=== PATIENT | male | born 1935 | race Caucasian/White ===

== ENCOUNTER 2016-05-03 05:40 | Outpatient (CLI) | payer MEDICARE, OTHER ==
[~2016-05-03] VITALS: Ht 185.4 cm; Wt 91.8 kg
--- NOTE | ~2016-05-03 | HEMODYNAMI ---
PATIENT:NAVYA PRICE MEDICAL RECORD: [id number] : 31 LOCATION:[facility] ADMISSION DATE: 05/03/16 Generatedon:05/03/20169:51 Patient name: NAVYA PRICE Patient #: [id number] SSN: : 1935 Date of study: 05/03/2016 Page: Of Hemodynamic Procedure Report Patient Data Patient Demographics Procedure consent was obtained First Name: NAVYA Gender: Male Last Name: DEE : 1935 Middle Initial: M Age: 80 year(s) Patient #: [id number] Race: Unknown Additional ID: [id number] Contact details [address]: [address] [place] [address] DRIVE State: [place] City: [place] Zip code: [address] Past Medical History Allergies: No known allergies Admission Admission Data Admission Date: 05/03/2016 Admission Time: 5:40 Height (in.): 71 BSA: 2.12 (m2) Height (cm.): 180.34 BMI: 28.17 (kg/m2) Weight (lbs.): 202 Weight (kg.): 91.63 Procedure Procedure Types Cath Procedure Peripheral Cath Diagnostic Procedure Cath Peripheral Abd/Extremity Extremities Bilat Lower Extremity Procedure Description Procedure Date Procedure Date: 05/03/2016 Procedure Start Time: 8:42 Procedure Staff Name Function Ashish Hays MD Performing Physician Bernardino Bird RT Scrub Elise Dinh RN Nurse Briana Woodard RN Nurse Patrica Robins RT Remanufacturing Technician Patrica Robins RT Monitor Procedure Data Cath Procedure Fluoroscopy Diagnostic fluoroscopy Total fluoroscopy Time: 9.5 time: 9.5 min min Diagnostic fluoroscopy Total fluoroscopy dose: dose: 418.58 mGy 418.58 mGy Contrast Material Contrast Material Type Amount (ml) Visipaque 270 80 Entry Location Entry Primary Successful Side Size Upsize Upsize Entry Closure Succ essful Closure Location (Fr) 1 (Fr) 2 (Fr) Remarks Device Remarks Femoral Left 5 Fr artery Femoral Left Angio-VIP artery 6Fr Diagnostic catheters Device Type Used For End Catheter Placement Merit ULTRA BOLUS FLUSH 5Fr 65CM catheter Procedure Medications Medication Administration Route Dosage Oxygen NC 3 l/min Heparin Flush Bag added to field 3 bags (1000units/500ml NS) Lidocaine 1% added to field 20 Versed I.V. 1 mg Fentanyl I.V. 50 mcg Versed I.V. 1 mg Fentanyl I.V. 50 mcg Heparin Bolus I.V. 5000 units Nitroglycerin IC/IA I.A. 200 mcg Fentanyl I.V. 50 mcg Versed I.V. 1 mg Nitroglycerin IC/IA I.A. 200 mcg Fentanyl I.V. 25 mcg Versed I.V. 0.5 mg Fentanyl I.V. 25 mcg Hemodynamics Rest BSA: 2.12 (m2) O2 Consumption: Estimated: 240.28 (ml/min) O2 Consumption indexed : Estimated:113.34 (ml/min/m) Heart Rate: 68 (bpm) Snapshots Pre Cath Intra NCS Post Cath Vital Signs Time Heart Resp SPO2 NIBP (mmHg) Rhythm Pain Sedation Rate (ipm) (%) Status Level (bpm) 8:22:14 81 15 99 169/98(144) A-Fib 0 (11) 10(A) , No pain 8:26:34 63 21 99 144/85(111) A-Fib 0 (11) 10(A) , No pain 8:30:50 67 16 98 134/78(116) A-Fib 0 (11) 10(A) , No pain 8:35:02 57 36 96 134/75(109) A-Fib 0 (11) 10(A) , No pain 8:39:14 68 23 96 127/75(119) A-Fib 0 (11) 10(A) , No pain 8:43:26 64 14 95 129/66(103) A-Fib 0 (11) 10(A) , No pain 8:47:34 60 16 96 126/79(106) A-Fib 0 (11) 9(A) , No pain 8:51:42 68 14 96 130/77(100) A-Fib 0 (11) 9(A) , No pain 8:55:51 62 17 96 136/77(110) A-Fib 0 (11) 9(A) , No pain 9:00:05 65 13 95 135/74(104) A-Fib 0 (11) 9(A) , No pain 9:04:21 75 23 95 131/63(94) A-Fib 0 (11) 9(A) , No pain 9:08:34 73 13 94 120/70(93) A-Fib 0 (11) 9(A) , No pain 9:12:43 69 33 94 128/66(90) A-Fib 0 (11) 10(A) , No pain 9:16:53 62 31 94 128/70(86) A-Fib 0 (11) 9(A) , No pain 9:21:07 66 20 94 102/63(91) A-Fib 0 (11) 9(A) , No pain 9:25:09 63 16 94 113/71(86) A-Fib 0 (11) 9(A) , No pain 9:29:17 68 12 95 120/64(81) A-Fib 0 (11) 9(A) , No pain 9:33:25 77 15 95 127/73(94) A-Fib 0 (11) 9(A) , No pain 9:37:36 55 47 95 121/71(94) A-Fib 0 (11) 9(A) , No pain 9:41:44 57 13 97 126/71(84) A-Fib 0 (11) 10(A) , No pain 9:45:50 58 13 95 126/81(113) A-Fib 0 (11) 9(A) , No pain 9:50:49 61 19 97 Measuring A-Fib 0 (11) 9(A) , No pain 9:50:57 67 19 96 126/78(109) A-Fib 0 (11) 9(A) , No pain Medications Time Medication Route Dose Verified Delivered Reason Notes Effectiveness by by 8:33:52 Oxygen NC 3 Briana Briana Per protocol l/min King NERI Woodard RN 8:34:07 Heparin Flush added 3 bags Briana Briana used for Bag to King NERI Woodard RN procedure (1000units/500ml field NS) 8:34:19 Lidocaine 1% added 20ml Briana Briana for local to vial King NERI Woodard RN anesthetic field 8:35:43 Versed I.V. 1 mg Briana Briana for sedation King NERI Woodard RN 8:35:50 Fentanyl I.V. 50 mcg Briana Briana for sedation King NERI Woodard RN 8:43:52 Versed I.V. 1 mg Briana Briana for sedation King NEIR Woodard RN 8:43:58 Fentanyl I.V. 50 mcg Briana Briana for sedation King NERI Woodard RN 9:03:12 Heparin Bolus I.V. 5000 Briana Briana for units King NERI Woodard RN anticoagulation 9:03:34 Nitroglycerin I.A. 200mcg Ashish Ashish for IC/IA Saúl latham MD 9:03:46 Fentanyl I.V. 50 mcg Briana Briana for sedation King NERI Woodard RN 9:14:54 Versed I.V. 1 mg Briana Briana for sedation King NERI Woodard RN 9:20:13 Nitroglycerin I.A. 200mcg Ashish Ashish for IC/IA Saúl latham MD 9:34:12 Fentanyl I.V. 25 mcg Briana Briana for sedation King NERI Woodard RN 9:43:15 Versed I.V. 0.5 mg Briana Briana for sedation King NERI Woodard RN 9:43:20 Fentanyl I.V. 25 mcg Briana Briana for sedation King NERI Woodard RN Procedure Log Time Note 7:53:18 Patient Weight : 202 lbs 7:53:25 Patient Height : 71 inches 7:54:07 Use device set IR Diagnostic 7:54:09 Sterile Angiographic Pack opened to sterile field. 7:54:11 Bag Decanter opened to sterile field. 7:54:12 Acist Manifold opened to sterile field. 7:54:13 A Merit ULTRA BOLUS FLUSH 5Fr 65CM catheter was advanced over the wire and used for . 7:54:13 Acist Hand Control opened to sterile field. 7:54:14 Acist Syringe opened to sterile field. 7:54:54 TUBING, CONTRAST INJCTN HI PRES opened to sterile field. 7:54:55 Micropuncture VSI 4FR kit opened to sterile field. 7:54:56 Lui DOC .035 guide wire opened to sterile field. 7:54:57 St Vlad 5FR Sheath opened to sterile field. 7:54:58 Lui PARIKH 260 guide wire opened to sterile field. 8:04:28 8:04:48 Time tracking: Regular hours 8:05:09 Correct patient and procedure confirmed by team. 8:05:11 Signed procedure consent form obtained from patient. 8:05:20 H&P Date Dictated: 05/03/2016 Within 30 days and on chart.. 8:05:23 Pre-procedure instructions explained to patient. 8:05:23 Pre-op teaching completed and patient verbalized understanding. 8:05:30 Family in waiting room. 8:05:33 Patient NPO since Midnight. 8:05:54 Patient allergic to No known allergies 8:05:58 Is the patient allergic to Iodine/contrast media? No. 8:06:08 Is patient on blood thinner?Yes 8:06:10 Patient diabetic? No. 8:06:16 8:06:17 ----Pre-sedation anethsthesia assessment.---- 8:06:21 Previous problem with sedation/anesthesia? No ? 8:06:27 Snore? Yes 8:06:29 Sleep apnea? No 8:06:31 Deviated septum? Yes 8:06:34 Opens mouth fully? Yes 8:06:36 Sticks out tongue? Yes 8:06:39 Airway obstruction? No ? 8:06:47 Dentures? No ? 8:06:53 8:07:12 IV patent on arrival in left hand with 0.9% NaCl at [facility]. 8:09:55 Physician arrived. Talking with pt and examining patient. 8:17:36 Pre procedure: right dorsailis pedis pulse Doppler 8:17:41 Pre procedure: right posterior tibial pulse Doppler 8:17:45 Pre procedure: left dorsailis pedis pulse Doppler 8:17:50 Pre procedure: left posterior tibial pulse Doppler 8:18:02 8:18:10 Left groin area was prepped with chlora-prep and draped in sterile fashion 8:18:12 Alarms reviewed by Kimberli Aguilar 8:18:12 Sharps counted by scrub and verified by Rosio 8:18:13 8:21:13 Vital chart was started 8:23:16 ECG and BP/O2 sat monitors applied to patient. 8:23:18 Baseline sample Acquired. 8:23:19 Full Disclosure recording started 8:23:20 8:33:52 Oxygen 3 l/min NC was given by Briana Woodard RN; Per protocol; 8:34:07 Heparin Flush Bag (1000units/500ml NS) 3 bags added to field was given by Briana Woodard RN; used for procedure; 8:34:19 Lidocaine 1% 20ml vial added to field was given by Briana Woodard RN; for local anesthetic; 8:35:14 Physician arrived 8:35:16 --------ALL STOP TIME OUT------ 8:35:17 Final Timeout: patient, procedure, and site verified with staff and physician. All members of the team are in agreement. 8:35:19 Left groin site verified by team. 8:35:24 Physical assessment completed. ASA score P 3 - A patient with severe systemic disease as per Ashish Hays MD. 8:35:32 Sedation plan: IV Moderate Sedation Versed, Fentanyl, Lidocaine 8:35:43 Versed 1 mg I.V. was given by Briana Woodard RN; for sedation; 8:35:50 Fentanyl 50 mcg I.V. was given by Briana Woodard RN; for sedation; 8:42:46 Procedure started. 8:42:55 Local anesthetic to left femerol artery with Lidocaine 1% by Ashish Hays MD.INITIAL ACCESS ONLY 8:43:52 Versed 1 mg I.V. was given by Briana Woodard RN; for sedation; 8:43:58 Fentanyl 50 mcg I.V. was given by Briana Woodard RN; for sedation; 8:47:40 Arterial access obtained using ultrasound guidance. 8:47:53 A 5 Fr sheath was inserted into the Left Femoral artery 8:51:24 Terumo ANGLE 260L glide wire opened to sterile field. 8:51:37 Terumo TORQUE DEVICE PLASTIC .038 opened to sterile field. 8:54:32 Terumo 6Fr [place] Destination Sheath opened to sterile field. 8:57:17 Terumo 5FR ANGLED 100CM glide catheter opened to sterile field. 9:02:23 VIPER .014 335 CM guide wire opened to sterile field. 9:03:12 Heparin Bolus 5000 units I.V. was given by Briana Woodard RN; for anticoagulation; 9:03:34 Nitroglycerin IC/IA 200mcg I.A. was given by Ashish Hays MD; for vasodilation; 9:03:46 Fentanyl 50 mcg I.V. was given by Briana Woodard RN; for sedation; 9:04:19 TURB[place] SX-C catheter opened to sterile field. 9:04:31 CXI SUPPORT .035 135 CM STR catheter opened to sterile field. 9:08:[address] 260 .035 glide wire opened to sterile field. 9:10:49 BasixTOUCH Inflation Syringe opened to sterile field. 9:14:54 Versed 1 mg I.V. was given by Briana Woodard RN; for sedation; 9:20:13 Nitroglycerin IC/IA 200mcg I.A. was given by Ashish Hays MD; for vasodilation; 9::21 Inflation number: 1 A IN.PACT Admiral 4.0 x 80 x 135 DCB Balloon was prepped and advanced across the Undefined1, then inflated to 14 BETZAIDA for 3:01 (min:sec). 9:31:33 Inflation number: 1 A IN.PACT Admiral 5.0 x 80 x 135 DCB Balloon was prepped and advanced across the Undefined2, then inflated to 14 BETZAIDA for 3:02 (min:sec). 9:34:12 Fentanyl 25 mcg I.V. was given by Briana Woodard RN; for sedation; 9:43:08 Sheath removed intact; hemostasis achieved with Angio-VIP 6Fr to the Left Femoral artery. 9:43:08 A sheath was inserted into the Left Femoral artery 9:43:15 Versed 0.5 mg I.V. was given by Briana Woodard RN; for sedation; 9:43:20 Fentanyl 25 mcg I.V. was given by Briana Woodard RN; for sedation; 9:43:20 ANGIOSEAL-VIP PLUS 6 FR opened to sterile field. 9:44:09 Fluoroscopy time 09.50 minutes. 9:44:30 Fluoroscopy dose: 418.58 mGy 9:44:30 Flurop Dose total: 418.58 9:44:38 Contrast amount:Visipaque 270 80ml. 9:44:41 Sharps counted by scrub and verified by R.N. 9:44:44 Procedure and supply charges have been captured, reviewed, submitted and are correct. 9:50:01 Procedure ended.(Physican Out) 9:51:14 End room use (Document Last) 9:51:29 Vital chart was stopped Intervention Summary Intervention Notes Time ActionType Lesion and Equipment Action# Pressure Duration Attributes Used :: Inflate Undefined1 IN.PACT 1 14 03:01 balloon Admiral 4.0 x 80 x 135 DCB Balloon 9:31:33 Inflate Undefined2 IN.PACT 1 14 03:02 balloon Admiral 5.0 x 80 x 135 DCB Balloon Device Usage Item Name Manufacture Quantity Catalog Number Hospital Part Current M inimal Lot# / Charge Number Stock Stock Serial# Code Sterile 1 [id number] [id number] 5 Angiographic Health Pack Bag Decanter Microtek 1 [id number] [id number] 99903 635899 5 Medical Inc. Acist Acist Medical 1 90577 959676 552159 040130 5 Manifold Systems Inc Acist Hand Acist Medical 1 58852 178770 737755 158572 5 Control Systems Inc Acist Syringe Acist Medical 1 33924 771490 158971 312304 2 0 Systems Inc TUBING, [facility] 1 [id number] 394011 248157 706917 5 CONTRAST INJCTN HI PRES Micropuncture VSI VASCULAR 1 7266V 585717 417322 5 VSI 4FR kit SOLUTIONS Nakina DOC .035 [facility] 1 D27256 368362 568583 [id number] Vlad [address] St Vlad 1 348057 960498 512055 5 [id number] Sheath [facility] 1 Z15081 687020 135005 [id number] [facility] 1 [id number] 646473 492393 5 BOLUS FLUSH 5Fr 65CM catheter Terumo ANGLE Terumo 1 [id number] 067799 372639 5 260L glide wire Terumo TORQUE [place] 1 TD01 412140 621493 301021 5 DEVICE Scientific PLASTIC .038 Terumo 6Fr Terumo 1 RSR01 156297 97764 052664 5 [place] Destination Sheath Terumo 5FR Terumo 1 CG508 911247 965662 4 ANGLED 100CM glide catheter VIPER .014 Cardiovascular 1 [id number] 641080 854843 5 335 CM guide systems wire TURBOH[place]K Ev3 1 THS-SX-C 159551 964393 5 SX-C catheter CXI SUPPORT [facility] 1 U69024 777823 942738 5 [id number] .035 135 CM STR catheter [facility] 1 U44013 578778 780059 [id number] 260 .035 glide [facility] CN1528 599859 372467 923343 5 Inflation Syringe IN.PACT Medtronic 1 [id number] 989755 238763 746938 5 [id number] Admiral 4.0 x 80 x 135 DCB Balloon IN.PACT Medtronic 1 [id number] 664456 868396 759604 5 [id number] Admiral 5.0 x 80 x 135 DCB Balloon ANGIOSEAL-VIP St Vlad 1 009174 412046 565653 5 [id number] PLUS 6 FR Signature Audit [place] Stage Time Signature Unsigned Intra-Procedure 05/03/2016 Patrica Robins 9:51:26 AM RT(R) Signatures Monitor : Patrica Robins RT Signature : Date : Time : [place] [id number] [facility] [address]
[~2016-05-03 05:40] MED LIST: ACETAMINOPHEN500 M1 PO; BAYER CHEWABLE81 MG PO; COUMADIN3 MG PO; CRESTOR5 MG PO; DIOVAN320 MG PO; ELIQUIS5 MG PO; GABAPENTIN100 MG PO; HYDROCHLOROTHIA25 MG PO; HYDROCODONE-APA1 TAB PO; MULTIPLE VITAMI1 TA1 PO; PLAVIX75 MG PO; PROSCAR5 MG PO
[2016-05-03] MEDS ORDERED: PLAVIX75 MG PO (06:27)
[2016-05-03 06:32] VITALS: BP 128/74; Ht 185.4 cm; Wt 91.8 kg
[2016-05-03 06:35] LABS: BASOPHILS 0.5 % (0.0-2.0); EOSINOPHILS 2.2 % (0-7); HEMOGLOBIN 13.4 g/dL (13.5-17.5); IMMATURE GRANULOCYTES 0.2 % (0-5); LYMPHOCYTES 25.8 % (15-50); MCH 31.9 pg (26.0-34.0); MCHC 32.7 g/dL (31.0-37.0); MCV 97.6 fL (80.0-100.0); MEAN PLATELET VOLUME 10.5 fL (7.4-10.4); MONOCYTES 10.1 % (2-11); NEUTROPHILS 61.2 % (40-80); PLATELET COUNT 189 10x3/uL (130-400); RDW 13.2 % (11.5-14.5); WBC 5.6 10x3/uL (4.8-10.8)
[2016-05-03 06:49] LABS: APTT 30.2 SECONDS (22.8-39.4); INR 1.48 (0.85-1.17); PROTIME 17.8 SECONDS (11.6-15.0)
[2016-05-03 06:51] LABS: ANION GAP 13.7 mmol/L (8-16); CALCIUM 8.7 mg/dL (8.5-10.1); CARBON DIOXIDE 27.4 mmol/L (21.0-32.0); CREATININE - SERUM 1.1 mg/dL (0.6-1.3); POTASSIUM - SERUM 4.1 mmol/L (3.5-5.1)
--- NOTE | 2016-05-03 11:44 | NUR ---
1000 RETURNED TO 2510 BY STRETCHER. PLACED ON DATASCOPE MONITORING. AT SIDE. REMINDED TO KEEP LEFT LEG STRAIGHT. O2 2L NC.
== END 2016-05-03 16:20 | disposition home or self-care (01) ==
LOC: D.OPS 05:40 → D.RAD 08:00 → D.OPS 08:00
PROVIDERS: Radiology Vascular & Interventional Radiology
DX: I70.211 Atherosclerosis of native arteries of extremities with intermittent claudication, right leg (principal); I70.221 Atherosclerosis of native arteries of extremities with rest pain, right leg; I10 Essential (primary) hypertension; I25.10 Atherosclerotic heart disease of native coronary artery without angina pectoris